=== PATIENT | male | born 1975 | race Caucasian/White ===

== ENCOUNTER 2016-09-07 10:46 | Inpatient (IN) | payer OTHER ==
[~2016-09-07] VITALS: Ht 180.3 cm; Wt 88.3 kg
[2016-09-07] VITALS (16 sets, daily range): BP systolic 111–139; BP diastolic 65–84; PULSE 75–104; RESP 16–55; Ht 180.3 cm; Wt 88.3 kg
[2016-09-07] MEDS ORDERED: PHEN100C PO (12:13)
[2016-09-07] MEDS ORDERED: CITA-104 PO (12:16)
[2016-09-07] MEDS ORDERED: HYDR-842 PO (12:16)
[2016-09-07] MEDS ORDERED: MELO-110 PO (12:17)
[2016-09-07] MEDS ORDERED: GABA-526 PO (12:17)
[2016-09-07] MEDS ORDERED: BUPR1FIL3 SL (12:19)
[2016-09-07] MEDS ORDERED: THROMBIN 5000 UNIT VIAL ONE (12:31)
[2016-09-07] MEDS ORDERED: POLYMYXIN/BACITRACIN 1L IRRIG ONE (12:31)
[2016-09-07] MEDS ORDERED: GELATIN SIZE 100 SPONGE ONE (12:31)
[2016-09-07] MEDS ORDERED: LIDOCAINE 1% (MPF) 30 ML INJ ONE (12:31)
[2016-09-07] MEDS ORDERED: BUPIVACAINE 0.5%/EPI (SDV) 30 ML INJ ONE (12:40)
[2016-09-07] MEDS ORDERED: ROCURONIUM 50 MG INJ ONE ×3 (12:46→14:30)
[2016-09-07] MEDS ORDERED: LIDOCAINE 2% (SDV) 5 ML INJ ONE (12:46)
[2016-09-07] MEDS ORDERED: PROPOFOL 20 ML ONE (12:46)
[2016-09-07] MEDS ORDERED: MIDAZOLAM 1 MG/ML 2 ML INJ ONE (13:02)
[2016-09-07] MEDS ORDERED: LABETALOL HCL 20MG INJ IV PRN (13:30)
[2016-09-07] MEDS ORDERED: EPHEDrine SULFATE 50 MG/5 ML SYG IV PRN (13:30)
[2016-09-07] MEDS ORDERED: MEPERIDINE 25 MG INJ IV PRN (13:30)
[2016-09-07] MEDS ORDERED: hydrALAzine 20 MG INJ IV PRN (13:30)
[2016-09-07] MEDS ORDERED: METOCLOPRAMIDE 10 MG INJ IV PRN (13:30)
[2016-09-07] MEDS ORDERED: FENTAnyl 50 MCG/ML VIAL IV PRN ×3 (13:30)
[2016-09-07] MEDS ORDERED: ONDANSETRON 4 MG INJ IV PRN ×2 (13:30)
[2016-09-07] MEDS ORDERED: HYDROmorphONE (0.2 MG/ML) 10ML SYG IV PRN ×2 (13:30)
[2016-09-07] MEDS ORDERED: DIPHENHYDRAMINE 50 MG INJ IV PRN (13:30)
[2016-09-07] MEDS ORDERED: HYDROmorphONE 2 MG/ML SYG ONE (13:31)
[2016-09-07] MEDS ORDERED: LABETALOL HCL 20MG INJ ONE (13:47)
[2016-09-07] MEDS: CEFAZOLIN 1 GM/50 ML (PMX) 50 ML IVPB SCH ×2 (14:00→21:04)
[2016-09-07] MEDS ORDERED: hydrALAzine 20 MG INJ ONE (14:03)
[2016-09-07] MEDS ORDERED: BUPIVACAINE 0.5% (MPF) 30 ML INJ INJ ONE (14:12)
[2016-09-07] MEDS ORDERED: DEXAMETHASONE 4 MG/ML 1 ML INJ ONE (14:28)
[2016-09-07] MEDS ORDERED: NEOSTIGMINE 3 MG/3 ML SYRINGE ONE (15:27)
[2016-09-07] MEDS ORDERED: GLYCOPYRROLATE 0.4 MG INJ ONE (15:27)
[2016-09-07] MEDS: HYDROmorphONE (0.2 MG/ML) 10ML SYG IV PRN ×2 (15:44→16:09)
[2016-09-07] MEDS ORDERED: LORAZEPAM 2 MG INJ IV ONE (16:30)
--- NOTE | 2016-09-07 18:58 | HP ---
DATE OF ADMISSION: 09/07/2016 CHIEF COMPLAINT AND HISTORY OF PRESENT ILLNESS: The patient is a 41-year-old gentleman with a hist ory of right lumbosacral radiculopathy. The patient was seen by Dr. Moreno as an outpatient and wa s diagnosed with right L4-L5 and L5-S1 disk herniation. The patient was brought into hospital and u nderwent microdiskectomy. The patient postoperatively is anxious and is complaining of pain. The p atient denied any chest pain or shortness of breath. Patient did not have any vomiting, did not hav e any leg edema. No focal weakness. The patient remains awake, alert. No focal weakness. No recen t fever or chills. REVIEW OF SYSTEMS: Rest of the systems are unremarkable. PAST MEDICAL HISTORY: As stated above. In addition, the patient is status post right inguinal karissa ia repair. The patient also has a history of stable seizure disorder. FAMILY HISTORY: Noncontributory. SOCIAL HISTORY: The patient has 20 pack years of smoking, history of IV heroin use for 11 years, al so history of cocaine use and methamphetamine use, but patient stated that he has been clean. PHYSICAL EXAMINATION: GENERAL: The patient to be conscious, awake, alert. VITAL SIGNS: Temperature 97.7, pulse 84, respirations 22, blood pressure 129/84, O2 saturation 98%. HEENT: Conjunctivae and lids normal. Oropharynx clear. NECK: Supple. No mass, no thyromegaly. CHEST: Fairly clear. CARDIOVASCULAR: S1, S2 normal. No murmur. ABDOMEN: Soft, nondistended, nontender. EXTREMITIES: No leg edema. Pedal pulses palpable. SKIN: Without acute rash. NEUROLOGIC: The patient is awake, alert, fairly oriented. LABORATORY DATA: Prior to surgery, hemoglobin 15, platelets 198. WBC is 9.2. Coagulation profile normal. Sodium 138, potassium 4.3, BUN 21, creatinine 0.7. Liver enzymes normal. EKG with sinus r hythm. Chest x-ray unremarkable. IMPRESSION: 1. Right lumbosacral radiculopathy due to disk herniation status post microdiskectomy. 2. History of seizure disorder. 3. History of polysubstance abuse, currently on Suboxone. PLAN: Patient admitted on medical floor. Patient will be continued on Celexa, gabapentin and Dil antin. The patient is getting perioperative IV antibiotic as per protocol. Patient is currently on [place] and IV morphine for pain control. The patient looks extremely anxious. He will be given 1 d ose of Ativan. He will use sequential compression devices for deep venous thrombosis prophylaxis an d will continue to follow him from a medical standpoint. Dictated By: MARION MAIN/MELANIE Conf#: [id number] DID#: [id number]
[2016-09-07] MEDS: morphine 2 MG INJ IV PRN ×2 (19:31→22:56)
[2016-09-07] MEDS: CYCLOBENZAPRINE 10 MG TAB PO PRN (20:21)
[2016-09-07] MEDS: GABAPENTIN 300 MG CAP PO SCH (20:21)
[2016-09-07] MEDS: PHENYTOIN 100 MG CAP PO SCH (20:21)
[2016-09-07] MEDS: HYDROCODONE/APAP (10/325) TAB PO PRN (21:06)
[2016-09-07] MEDS: LORAZEPAM 2 MG INJ IV PRN (21:07)
[2016-09-08] MEDS: LORAZEPAM 2 MG INJ IV PRN ×5 (00:11→21:33)
[2016-09-08 01:09] VITALS: BP 128/64; PULSE 95; RESP 18
[2016-09-08] MEDS: HYDROCODONE/APAP (10/325) TAB PO PRN ×5 (01:23→21:53)
[2016-09-08] MEDS: morphine 2 MG INJ IV PRN ×4 (01:57→19:33)
[2016-09-08] MEDS: CEFAZOLIN 1 GM/50 ML (PMX) 50 ML IVPB SCH ×2 (04:52→13:06)
[2016-09-08 08:57] VITALS: BP 122/61; RESP 20
[2016-09-08] MEDS: CITALOPRAM 20 MG TAB PO SCH (09:14)
[2016-09-08] MEDS: CYCLOBENZAPRINE 10 MG TAB PO PRN ×2 (09:14→17:23)
[2016-09-08] MEDS: PHENYTOIN 100 MG CAP PO SCH ×2 (09:15→20:53)
[2016-09-08] MEDS: GABAPENTIN 300 MG CAP PO SCH ×3 (09:15→20:53)
--- NOTE | 2016-09-08 12:53 | CONS ---
Date/Time of Note Date/Time of Note DATE: 09/08/16 TIME: 12:50 Assessment/Plan Assessment/Plan Additional Assessment/Plan seen/examined with Dr Moreno awake/looks sedated and drowsy/follows/moves all/sensation intact will adjust narcotics and ativan. sp right l4-5, left l5-s1 microdiskectomy cont with pt/ot Consultation Date/Type/Reason Admit Date/Time Sep 07, 2016 at 10:46 Initial Consult Date Exam/Review of Systems Vital Signs Vitals Vital Signs Date Time Temp Pulse Resp B/P Pulse Ox O2 Delivery O2 Flow Rate FiO2 09/08/16 08:57 97.9 87 20 122/61 95 09/08/16 01:09 Nasal Cannula 2.0 Intake and Output 09/07/16 09/07/16 09/08/16 15:00 23:00 07:00 Intake Total 1650 ml 1450 ml Output Total 150 ml 100 ml 1500 ml Balance -150 ml 1550 ml -50 ml Medications Medications Current Medications Cefazolin Sodium (Ancef 1 Gm/50 ml (Pmx)) 50 ml @ 100 mls/hr Q8 IVPB Last administered on 09/08/16 04:52; Admin Dose 100 MLS/HR; Start 09/07/16 at 14:00; Stop 09/08/16 at 14:00 Acetaminophen/ Hydrocodone Bitart ([place] (10/325)) 1 tab Q4H PRN PO PAIN Last administered on 09/08/16 09:14; Admin Dose 1 TAB; Start 09/07/16 at 13:30 Ondansetron HCl (Zofran Inj) 4 mg Q6H PRN IV NAUSEA AND/OR VOMITING; Start 09/07 at 13:30 Citalopram Hydrobromide (Celexa) 40 mg DAILY PO Last administered on 09/08/16 09:14; Admin Dose 40 MG; Start 09/08/16 at 09:00 Gabapentin (Neurontin) 600 mg TID PO Last administered on 09/08/16 09:15; Admin Dose 600 MG; Start 09/07/16 at 21:00 Phenytoin (Dilantin) 200 mg BID PO Last administered on 09/08/16 09:15; Admin Dose 200 MG; Start 09/07/16 at 21:00 Cyclobenzaprine HCl (Flexeril) 10 mg TID PRN PO MUSCLE SPASMS Last administered on 09/08/16 09:14; Admin Dose 10 MG; Start 09/07/16 at 19:00 Lorazepam (Ativan) 1 mg Q2HWA PRN IV ANXIETY Last administered on 09/08/16 09: 14; Admin Dose 1 MG; Start 09/07/16 at 21:00 Morphine Sulfate (morphine) 1 mg Q4H PRN IV severe pain; Start 09/08/16 at 14:30 ALBERTINA MORALEZ PA-C Sep 08, 2016 12:53
--- NOTE | 2016-09-08 13:30 | OPPN ---
Date/Time of Note Date/Time of Note DATE: 09/08/16 TIME: 13:29 Anesthesia Follow up Anesthesia Follow up Last documented vital signs Vital Signs Date Time Temp Pulse Resp B/P Pulse Ox O2 Delivery O2 Flow Rate FiO2 09/08/16 08:57 97.9 87 20 122/61 95 09/08/16 08:00 Nasal Cannula 2.0 Respiratory function: WNL Cardiovascular function: WNL TAYLOR PINO Sep 08, 2016 13:30
[2016-09-08 13:44] LABS: ADD SCAN DIFF NO
[2016-09-08 13:46] LABS: ABNORMAL IP MESSAGE 1; BASOPHILS % 0.1 % (0.0-2.0); HEMATOCRIT 40.6 % (42.0-52.0); HEMOGLOBIN 14.1 g/dl (14.0-18.0); LYMPHOCYTES % 13.2 % (15.0-51.0); MEAN CORPUSCULAR HEMOGLOBIN 29.4 pg (29.0-33.0); MEAN CORPUSCULAR HGB CONC 34.7 g/dl (32.0-37.0); MEAN CORPUSCULAR VOLUME 84.6 fl (82.0-101.0); MEAN PLATELET VOLUME 9.7 fl (7.4-10.4); MONOCYTE # 1.7 10^3/ul (0.3-0.9); MONOCYTES % 11.3 % (0.0-11.0); NEUTROPHIL # 11.4 10^3/ul (1.6-7.5); NEUTROPHILS % 74.9 % (39.0-77.0); PLATELET COUNT 180 10^3/UL (140-415); RED CELL DISTRIBUTION WIDTH 11.3 % (11.5-14.5); WHITE BLOOD COUNT 15.3 10^3/ul (4.8-10.8)
[2016-09-08 14:05] LABS: CALCIUM 8.9 mg/dl (8.4-10.2); CREATININE 0.58 mg/dl (0.61-1.24)
--- NOTE | 2016-09-08 14:12 | PN ---
Date/Time of Note Date/Time of Note DATE: 09/08/16 TIME: 14:12 Assessment/Plan VTE Prophylaxis VTE Prophylaxis Intervention: SCD's Lines/Catheters IV Catheter Type (from Nrsg): Peripheral IV Urinary Cath still in place: Yes Reason Cath still needed: urinary retention Assessment/Plan Chief Complaint/Hosp Course Patient pain pain is well controlled, remains hemodynamically stable. Low back surgical dressing is dry clean and intact. Problems: Assessment/Plan 1. Right lumbosacral radiculopathy due to disk herniation status post microdiskectomy. Continue to follow-up surgical recommendation. 2. History of seizure disorder. Continue Dilantin. 3. History of polysubstance abuse, currently on Suboxone. Further recommendations based on clinical course. Plan of care discussed with Dr. Gandhi. Exam/Review of Systems Vital Signs Vitals Vital Signs Date Time Temp Pulse Resp B/P Pulse Ox O2 Delivery O2 Flow Rate FiO2 09/08/16 08:57 97.9 87 20 122/61 95 09/08/16 08:00 Nasal Cannula 2.0 Intake and Output 09/07/16 09/07/16 09/08/16 15:00 23:00 07:00 Intake Total 1650 ml 1450 ml Output Total 150 ml 100 ml 1500 ml Balance -150 ml 1550 ml -50 ml Exam Constitutional: alert, oriented Head: atraumatic, normocephalic Neck: supple Cardiovascular: nl pulses Gastrointestinal: non-tender, soft Musculoskeletal: nl extremities to inspection, other (Lower posterior back surgical dressing is dry clean and intact) Extremities: normal pulses Results Result Diagram: 09/08/16 1324 09/08/16 1324 Results 24 hrs Laboratory Tests Test 09/08/16 13:24 White Blood Count 15.3 H Red Blood Count 4.80 Hemoglobin 14.1 Hematocrit 40.6 L Mean Corpuscular Volume 84.6 Mean Corpuscular Hemoglobin 29.4 Mean Corpuscular Hemoglobin Concent 34.7 Red Cell Distribution Width 11.3 L Platelet Count 180 Mean Platelet Volume 9.7 Neutrophils % 74.9 Lymphocytes % 13.2 L Monocytes % 11.3 H Eosinophils % 0.0 Basophils % 0.1 Nucleated Red Blood Cells % 0.0 Neutrophils # 11.4 H Lymphocytes # 2.0 Monocytes # 1.7 H Eosinophils # 0.0 Basophils # 0.0 Nucleated Red Blood Cells # 0.0 Sodium Level 136 Potassium Level 4.0 Chloride Level 104 Carbon Dioxide Level 27 Anion Gap 9 Blood Urea Nitrogen 16 Creatinine 0.58 L Glucose Level 119 Calcium Level 8.9 Medications Medications Current Medications Acetaminophen/ Hydrocodone Bitart ([place] (10/325)) 1 tab Q4H PRN PO PAIN Last administered on 09/08/16 13:18; Admin Dose 1 TAB; Start 09/07/16 at 13:30 Ondansetron HCl (Zofran Inj) 4 mg Q6H PRN IV NAUSEA AND/OR VOMITING; Start 09/07 at 13:30 Citalopram Hydrobromide (Celexa) 40 mg DAILY PO Last administered on 09/08/16 09:14; Admin Dose 40 MG; Start 09/08/16 at 09:00 Gabapentin (Neurontin) 600 mg TID PO Last administered on 09/08/16 13:06; Admin Dose 600 MG; Start 09/07/16 at 21:00 Phenytoin (Dilantin) 200 mg BID PO Last administered on 09/08/16 09:15; Admin Dose 200 MG; Start 09/07/16 at 21:00 Cyclobenzaprine HCl (Flexeril) 10 mg TID PRN PO MUSCLE SPASMS Last administered on 09/08/16 09:14; Admin Dose 10 MG; Start 09/07/16 at 19:00 Morphine Sulfate (morphine) 1 mg Q4H PRN IV severe pain; Start 09/08/16 at 14:30 Lorazepam (Ativan) 1 mg Q6H PRN IV ANXIETY; Start 09/08/16 at 17:00 ADOLFO POWER Sep 08, 2016 14:12
[2016-09-08] MEDS ORDERED: morphine 2 MG INJ IV PRN (14:30)
--- NOTE | 2016-09-08 18:57 | RADRPT ---
PROCEDURE: Intraoperative fluoroscopy. CLINICAL INDICATION: Intraoperative fluoroscopy during L4-S1 microdiskectomy. TECHNIQUE: 4 spot intraoperative fluoroscopic images were provided. The images were reviewed on a high-resolution PACS workstation. COMPARISON: None available FINDINGS: Multiple spot intraoperative fluoroscopic views were provided during lumbar microdiskectomy. The im ages demonstrate instrumentation at the level of L5-S1. The total fluoroscopy time was 0.08 seconds . IMPRESSION: 1. Multiple spot intraoperative fluoroscopic views during lumbar microdiskectomy were provided. 2. Please see operative report of the same day for further information. RPTAT: HGAS .Thanh Agarwal MD, MD Date Time Electronically viewed and signed by .Thanh Agarwal MD, on 09/08/2016 18:56 .S/
[2016-09-09] MEDS: morphine 2 MG INJ IV PRN ×2 (00:16→05:22)
[2016-09-09] MEDS: CYCLOBENZAPRINE 10 MG TAB PO PRN ×3 (01:44→20:22)
[2016-09-09] MEDS: HYDROCODONE/APAP (10/325) TAB PO PRN ×5 (01:44→21:28)
[2016-09-09] MEDS: ZOLPIDEM 5 MG TAB PO PRN ×2 (01:44→20:22)
[2016-09-09 02:02] VITALS: BP 135/77; RESP 20
[2016-09-09] MEDS: LORAZEPAM 2 MG INJ IV PRN ×2 (04:18→17:54)
[2016-09-09 05:12] LABS: ADD SCAN DIFF NO
[2016-09-09 05:18] LABS: ABNORMAL IP MESSAGE 1; BASOPHILS % 0.1 % (0.0-2.0); HEMATOCRIT 37.5 % (42.0-52.0); HEMOGLOBIN 13.5 g/dl (14.0-18.0); LYMPHOCYTES # 2.6 10^3/ul (0.8-2.9); MEAN CORPUSCULAR HEMOGLOBIN 29.8 pg (29.0-33.0); MEAN CORPUSCULAR VOLUME 82.8 fl (82.0-101.0); MONOCYTE # 1.6 10^3/ul (0.3-0.9); MONOCYTES % 11.4 % (0.0-11.0); NEUTROPHIL # 9.9 10^3/ul (1.6-7.5); NEUTROPHILS % 69.9 % (39.0-77.0); PLATELET COUNT 181 10^3/UL (140-415); RED BLOOD COUNT 4.53 10^6/ul (4.70-6.10); RED CELL DISTRIBUTION WIDTH 10.9 % (11.5-14.5); WHITE BLOOD COUNT 14.2 10^3/ul (4.8-10.8)
[2016-09-09 05:33] LABS: CALCIUM 9.1 mg/dl (8.4-10.2); CREATININE 0.55 mg/dl (0.61-1.24); POTASSIUM 3.9 mmol/L (3.5-5.1)
--- NOTE | 2016-09-09 06:53 | PREOPHP ---
DATE OF ADMISSION: 09/07/2016 HISTORY OF PRESENT ILLNESS: The patient is a 41-year-old male originally seen in the office for maricarmen dunn of low back pain with pain radiating to both of his lower extremities, right greater than le ft. The patient was diagnosed with lumbar 4, lumbar 5 right-sided disk herniation and lumbar 5, sac ral 1 left-sided disk herniation. Conservative management was offered in the form of physical thera py and pain management. The patient failed. The patient also had epidural injections in the lumbar spine x4, which it did not improve. He continued to complain of low back pain, continued to compla in of pain radiating to the lower extremities, both sides, but sometimes he would complain of right side having more pain and sometimes the left side having more pain. Unfortunately, the patient has exhausted all means of conservative management and has failed outpatient therapy. Surgical option w as discussed with the patient in the form of right lumbar 4, 5 and left lumbar 5, sacral 1 microdisk ectomy. The patient has agreed to proceed with intervention. PAST MEDICAL HISTORY: Per chart. PAST SURGICAL HISTORY: Per chart. SOCIAL HISTORY: Per chart. ALLERGIES: PER CHART. MEDICATIONS TAKEN AT HOME: Per chart. FAMILY HISTORY: Unremarkable. REVIEW OF SYSTEMS: Additional 10-point review of systems conducted, pertinent positives stated in t he HPI, otherwise negative. PHYSICAL EXAMINATION: GENERAL: The patient is awake, alert and oriented in bed, follows commands appropriately. HEENT: Head is atraumatic, normocephalic. Sclerae anicteric. EOMS intact. Pupils are equal and reactive. Oropharynx shows , no bleeding. NECK: Supple. No thyromegaly. No JVD. No accessory muscle use. PULMONARY: No dyspnea, no tachypnea. CARDIOVASCULAR: No JVD, no pedal edema. ABDOMEN: Soft without guarding. Bowel sounds present. PERIPHERAL VASCULAR: No edema, no swelling. NEUROLOGIC: . Awake, alert and oriented, follows commands appropriately. Upper extremity exa mination unremarkable. Lower extremities: He is able to move both lower extremities knees __ ___ equally, but he is having a considerable amount of lumbar spine pain when he is moving his right lower extremity. positive straight leg raise noted. IMAGING FINDINGS: MRI dated 07/27/2016 shows a right lumbar 4, 5 disk herniation and left lumbar 5, sacral 1 disk herniation. IMPRESSION: The patient is approximately 41 years of age, has history of low back pain with radicul opathy and has been diagnosed with right L4-L5 and left L5-S1 disk herniation. The patient has a co nsiderable amount of pain in the lower back, has failed outpatient management. RECOMMENDATION: Is for patient to be admitted to the hospital for right L4-L5 and left L5- S1 amy otomy with microdiskectomy. The procedure was described to the patient in great detail. Complicati ons explained including permanent nerve damage, infection, bleeding. Complications with anesthesia including stroke, heart attack. The patient has agreed and wants to proceed. Preop was performed a nd has been cleared by primary care physician. The patient will be admitted to the hospital after f or further care and management. Dictated By: TATYANA SALEEM/MELANIE Conf#: [id number] DID#: [id number]
--- NOTE | 2016-09-09 07:22 | CONS ---
Date/Time of Note Date/Time of Note DATE: 09/09/16 TIME: 07:17 Assessment/Plan Assessment/Plan Additional Assessment/Plan seen/examined awake/alert/follows/moves all wound looks good pt states pain better compared to yesterday co severe back pain, rad to left lower extremity placed a pillow to get relief from low back pain encourage to ambulate may go home within 24 hrs Consultation Date/Type/Reason Admit Date/Time Sep 07, 2016 at 10:46 Exam/Review of Systems Vital Signs Vitals Vital Signs Date Time Temp Pulse Resp B/P Pulse Ox O2 Delivery O2 Flow Rate FiO2 09/09/16 02:02 98.5 92 20 135/77 93 09/08/16 08:00 Nasal Cannula 2.0 Intake and Output 09/08/16 09/08/16 09/09/16 15:00 23:00 07:00 Intake Total 50 ml 1220 ml 1200 ml Output Total 2200 ml 2600 ml Balance 50 ml -980 ml -1400 ml Results Result Diagram: 09/09/16 0417 09/09/16 0417 Results 24 hrs Laboratory Tests Test 09/08/16 13:24 09/09/16 04:17 White Blood Count 15.3 H 14.2 H Red Blood Count 4.80 4.53 L Hemoglobin 14.1 13.5 L Hematocrit 40.6 L 37.5 L Mean Corpuscular Volume 84.6 82.8 Mean Corpuscular Hemoglobin 29.4 29.8 Mean Corpuscular Hemoglobin Concent 34.7 36.0 Red Cell Distribution Width 11.3 L 10.9 L Platelet Count 180 181 Mean Platelet Volume 9.7 10.0 Neutrophils % 74.9 69.9 Lymphocytes % 13.2 L 18.0 Monocytes % 11.3 H 11.4 H Eosinophils % 0.0 0.0 Basophils % 0.1 0.1 Nucleated Red Blood Cells % 0.0 0.0 Neutrophils # 11.4 H 9.9 H Lymphocytes # 2.0 2.6 Monocytes # 1.7 H 1.6 H Eosinophils # 0.0 0.0 Basophils # 0.0 0.0 Nucleated Red Blood Cells # 0.0 0.0 Sodium Level 136 138 Potassium Level 4.0 3.9 Chloride Level 104 106 Carbon Dioxide Level 27 26 Anion Gap 9 10 Blood Urea Nitrogen 16 10 Creatinine 0.58 L 0.55 L Glucose Level 119 110 Calcium Level 8.9 9.1 Medications Medications Current Medications Acetaminophen/ Hydrocodone Bitart ([place] (10/325)) 1 tab Q4H PRN PO PAIN Last administered on 09/09/16 06:25; Admin Dose 1 TAB; Start 09/07/16 at 13:30 Ondansetron HCl (Zofran Inj) 4 mg Q6H PRN IV NAUSEA AND/OR VOMITING; Start 09/07 at 13:30 Citalopram Hydrobromide (Celexa) 40 mg DAILY PO Last administered on 09/08/16 09:14; Admin Dose 40 MG; Start 09/08/16 at 09:00 Gabapentin (Neurontin) 600 mg TID PO Last administered on 09/08/16 20:53; Admin Dose 600 MG; Start 09/07/16 at 21:00 Phenytoin (Dilantin) 200 mg BID PO Last administered on 09/08/16 20:53; Admin Dose 200 MG; Start 09/07/16 at 21:00 Cyclobenzaprine HCl (Flexeril) 10 mg TID PRN PO MUSCLE SPASMS Last administered on 09/09/16 01:44; Admin Dose 10 MG; Start 09/07/16 at 19:00 Lorazepam (Ativan) 1 mg Q6H PRN IV ANXIETY Last administered on 09/09/16 04:18 ; Admin Dose 1 MG; Start 09/08/16 at 17:00 Morphine Sulfate (morphine) 2 mg Q3 PRN IV severe pain Last administered on 09/09 05:22; Admin Dose 2 MG; Start 09/08/16 at 18:00 Zolpidem Tartrate (Ambien) 10 mg HS PRN PO INSOMNIA Last administered on 01:44; Admin Dose 10 MG; Start 09/09/16 at 01:30 ALBERTINA MORALEZ PA-C Sep 09, 2016 07:22
[2016-09-09 08:42] VITALS: BP 129/81; RESP 18
[2016-09-09] MEDS: HYDROmorphONE 1 MG/ML SYG IV PRN ×5 (08:50→22:02)
[2016-09-09] MEDS: CITALOPRAM 20 MG TAB PO SCH (08:50)
[2016-09-09] MEDS: PHENYTOIN 100 MG CAP PO SCH ×2 (08:50→20:22)
[2016-09-09] MEDS: GABAPENTIN 300 MG CAP PO SCH ×3 (08:50→20:22)
[2016-09-09] MEDS: DIAZEPAM 5 MG TAB PO PRN ×2 (15:17→21:28)
--- NOTE | 2016-09-09 17:38 | PN ---
Date/Time of Note Date/Time of Note DATE: 09/09/16 TIME: 17:37 Assessment/Plan VTE Prophylaxis VTE Prophylaxis Intervention: other Lines/Catheters IV Catheter Type (from Nrs): Peripheral IV Urinary Cath still in place: Yes Assessment/Plan Assessment/Plan 1. Right lumbosacral radiculopathy due to disk herniation status post microdiskectomy. Continue to follow-up neuro surgical recommendation. 2. History of seizure disorder. Continue Dilantin. 3. History of polysubstance abuse, currently on Suboxone. Further recommendations based on clinical course. Plan of care discussed with Dr. Gandhi. Subjective 24 Hr Interval Summary Free Text/Dictation c/o lower back pain, remains hemodynamically stable. Low back surgical dressing is dry clean and intact. dw staff. Cardiovascular: no complaints Gastrointestinal: no complaints Genitourinary: no complaints Musculoskeletal: back pain Exam/Review of Systems Vital Signs Vitals Vital Signs Date Time Temp Pulse Resp B/P Pulse Ox O2 Delivery O2 Flow Rate FiO2 09/09/16 08:42 98.2 83 18 129/81 96 09/08/16 08:00 Nasal Cannula 2.0 Intake and Output 09/08/16 09/08/16 09/09/16 15:00 23:00 07:00 Intake Total 50 ml 1220 ml 1200 ml Output Total 2200 ml 2600 ml Balance 50 ml -980 ml -1400 ml Exam Constitutional: alert, oriented, well developed Respiratory: clear to auscultation, normal air movement Cardiovascular: nl pulses, regular rate and rhythm Gastrointestinal: non-tender, soft Musculoskeletal: nl extremities to inspection Extremities: normal pulses Neurological: nl mental status, nl speech Skin: other Lymph: nontender Results Result Diagram: 09/09/16 0417 09/09/16 0417 Results 24 hrs Laboratory Tests Test 09/09/16 04:17 White Blood Count 14.2 H Red Blood Count 4.53 L Hemoglobin 13.5 L Hematocrit 37.5 L Mean Corpuscular Volume 82.8 Mean Corpuscular Hemoglobin 29.8 Mean Corpuscular Hemoglobin Concent 36.0 Red Cell Distribution Width 10.9 L Platelet Count 181 Mean Platelet Volume 10.0 Neutrophils % 69.9 Lymphocytes % 18.0 Monocytes % 11.4 H Eosinophils % 0.0 Basophils % 0.1 Nucleated Red Blood Cells % 0.0 Neutrophils # 9.9 H Lymphocytes # 2.6 Monocytes # 1.6 H Eosinophils # 0.0 Basophils # 0.0 Nucleated Red Blood Cells # 0.0 Sodium Level 138 Potassium Level 3.9 Chloride Level 106 Carbon Dioxide Level 26 Anion Gap 10 Blood Urea Nitrogen 10 Creatinine 0.55 L Glucose Level 110 Calcium Level 9.1 Medications Medications Current Medications Acetaminophen/ Hydrocodone Bitart ([place] (10/325)) 1 tab Q4H PRN PO PAIN Last administered on 09/09/16 17:30; Admin Dose 1 TAB; Start 09/07/16 at 13:30 Ondansetron HCl (Zofran Inj) 4 mg Q6H PRN IV NAUSEA AND/OR VOMITING; Start 09/07 at 13:30 Citalopram Hydrobromide (Celexa) 40 mg DAILY PO Last administered on 09/09/16 08:50; Admin Dose 40 MG; Start 09/08/16 at 09:00 Gabapentin (Neurontin) 600 mg TID PO Last administered on 09/09/16 12:27; Admin Dose 600 MG; Start 09/07/16 at 21:00 Phenytoin (Dilantin) 200 mg BID PO Last administered on 09/09/16 08:50; Admin Dose 200 MG; Start 09/07/16 at 21:00 Cyclobenzaprine HCl (Flexeril) 10 mg TID PRN PO MUSCLE SPASMS Last administered on 09/09/16 11:23; Admin Dose 10 MG; Start 09/07/16 at 19:00 Lorazepam (Ativan) 1 mg Q6H PRN IV ANXIETY Last administered on 09/09/16 04:18 ; Admin Dose 1 MG; Start 09/08/16 at 17:00 Zolpidem Tartrate (Ambien) 10 mg HS PRN PO INSOMNIA Last administered on 01:44; Admin Dose 10 MG; Start 09/09/16 at 01:30 Hydromorphone HCl (Dilaudid) 1 mg Q3H PRN IV SEVERE PAIN LEVEL 7-10 Last administered on 09/09/16 15:46; Admin Dose 1 MG; Start 09/09/16 at 08:30 Diazepam (Valium) 5 mg Q6H PRN PO ANXIETY Last administered on 09/09/16 15:17; Admin Dose 5 MG; Start 09/09/16 at 15:30 CHELE BARNETT Sep 09, 2016 17:38
[2016-09-09 22:59] VITALS: BP 119/69; RESP 20
[2016-09-10] MEDS: HYDROmorphONE 1 MG/ML SYG IV PRN ×7 (02:16→21:57)
[2016-09-10] MEDS: DIAZEPAM 5 MG TAB PO PRN ×4 (03:25→23:02)
[2016-09-10] MEDS: HYDROCODONE/APAP (10/325) TAB PO PRN ×3 (03:25→20:51)
[2016-09-10] MEDS: CYCLOBENZAPRINE 10 MG TAB PO PRN (05:31)
[2016-09-10 05:39] LABS: ADD SCAN DIFF NO
[2016-09-10 05:46] LABS: BASOPHILS % 0.2 % (0.0-2.0); EOSINOPHILS # 0.1 10^3/ul (0.0-0.5); EOSINOPHILS % 0.5 % (0.0-7.0); HEMATOCRIT 37.7 % (42.0-52.0); HEMOGLOBIN 13.4 g/dl (14.0-18.0); LYMPHOCYTES # 2.5 10^3/ul (0.8-2.9); LYMPHOCYTES % 24.9 % (15.0-51.0); MEAN CORPUSCULAR HEMOGLOBIN 29.5 pg (29.0-33.0); MEAN CORPUSCULAR HGB CONC 35.5 g/dl (32.0-37.0); MEAN PLATELET VOLUME 10.2 fl (7.4-10.4); MONOCYTE # 1.2 10^3/ul (0.3-0.9); NEUTROPHIL # 6.3 10^3/ul (1.6-7.5); PLATELET COUNT 174 10^3/UL (140-415); RED BLOOD COUNT 4.54 10^6/ul (4.70-6.10); RED CELL DISTRIBUTION WIDTH 11.2 % (11.5-14.5); WHITE BLOOD COUNT 10.1 10^3/ul (4.8-10.8)
[2016-09-10 06:13] LABS: CALCIUM 9.3 mg/dl (8.4-10.2); CREATININE 0.56 mg/dl (0.61-1.24); POTASSIUM 3.8 mmol/L (3.5-5.1)
[2016-09-10] MEDS: CITALOPRAM 20 MG TAB PO SCH (08:34)
[2016-09-10] MEDS: GABAPENTIN 300 MG CAP PO SCH ×3 (08:34→20:50)
[2016-09-10] MEDS: PHENYTOIN 100 MG CAP PO SCH ×2 (08:34→20:50)
[2016-09-10 08:48] VITALS: BP 109/70
--- NOTE | 2016-09-10 16:01 | PN ---
Date/Time of Note Date/Time of Note DATE: 09/10/16 TIME: 15:58 Assessment/Plan VTE Prophylaxis VTE Prophylaxis Intervention: SCD's Lines/Catheters IV Catheter Type (from Nrsg): Peripheral IV Urinary Cath still in place: Yes Reason Cath still needed: urinary retention Assessment/Plan Chief Complaint/Hosp Course Patient still complains of pain and anxiety requiring IV Dilaudid and Ativan. Patient is encouraged to get out of bed and ambulate, use incentive spirometer q. one hour while awake. Assessment/Plan 1. Right lumbosacral radiculopathy due to disk herniation status post microdiskectomy. Continue to follow-up surgical recommendation. 2. History of seizure disorder. Continue Dilantin. 3. History of polysubstance abuse, was on Suboxone prior to surgery. Further recommendations based on clinical course. Plan of care discussed with Dr. Gandhi. Problems: Exam/Review of Systems Vital Signs Vitals Vital Signs Date Time Temp Pulse Resp B/P Pulse Ox O2 Delivery O2 Flow Rate FiO2 09/10/16 08:48 98.2 84 109/70 96 09/09/16 22:59 20 09/08/16 08:00 Nasal Cannula 2.0 Intake and Output 09/09/16 09/09/16 09/10/16 15:00 23:00 07:00 Intake Total 1200 ml 750 ml Output Total 1700 ml 1400 ml Balance -500 ml -650 ml Exam Constitutional: alert, oriented Head: atraumatic, normocephalic Neck: supple Cardiovascular: nl pulses Gastrointestinal: non-tender, soft Musculoskeletal: nl extremities to inspection, other (Lower posterior back surgical dressing is dry clean and intact) Extremities: normal pulses Results Result Diagram: 09/10/16 0439 09/10/16 0439 Results 24 hrs Laboratory Tests Test 09/10/16 04:39 09/10/16 07:09 White Blood Count 10.1 # Red Blood Count 4.54 L Hemoglobin 13.4 L Hematocrit 37.7 L Mean Corpuscular Volume 83.0 Mean Corpuscular Hemoglobin 29.5 Mean Corpuscular Hemoglobin Concent 35.5 Red Cell Distribution Width 11.2 L Platelet Count 174 Mean Platelet Volume 10.2 Neutrophils % 62.0 Lymphocytes % 24.9 Monocytes % 12.0 H Eosinophils % 0.5 Basophils % 0.2 Nucleated Red Blood Cells % 0.0 Neutrophils # 6.3 Lymphocytes # 2.5 Monocytes # 1.2 H Eosinophils # 0.1 Basophils # 0.0 Nucleated Red Blood Cells # 0.0 Sodium Level 141 Potassium Level 3.8 Chloride Level 105 Carbon Dioxide Level 24 Anion Gap 16 Blood Urea Nitrogen 12 Creatinine 0.56 L Glucose Level 114 Calcium Level 9.3 Lab Scanned Report REFERENCE LAB Medications Medications Current Medications Acetaminophen/ Hydrocodone Bitart ([place] (10)) 1 tab Q4H PRN PO PAIN Last administered on 09/10/16 07:13; Admin Dose 1 TAB; Start 09/07/16 at 13:30 Ondansetron HCl (Zofran Inj) 4 mg Q6H PRN IV NAUSEA AND/OR VOMITING; Start 09/07 at 13:30 Citalopram Hydrobromide (Celexa) 40 mg DAILY PO Last administered on 09/10/16 08:34; Admin Dose 40 MG; Start 09/08/16 at 09:00 Gabapentin (Neurontin) 600 mg TID PO Last administered on 09/10/16 12:35; Admin Dose 600 MG; Start 09/07/16 at 21:00 Phenytoin (Dilantin) 200 mg BID PO Last administered on 09/10/16 08:34; Admin Dose 200 MG; Start 09/07/16 at 21:00 Cyclobenzaprine HCl (Flexeril) 10 mg TID PRN PO MUSCLE SPASMS Last administered on 09/10/16 05:31; Admin Dose 10 MG; Start 09/07/16 at 19:00 Lorazepam (Ativan) 1 mg Q6H PRN IV ANXIETY Last administered on 09/09/16 17:54 ; Admin Dose 1 MG; Start 09/08/16 at 17:00 Zolpidem Tartrate (Ambien) 10 mg HS PRN PO INSOMNIA Last administered on 20:22; Admin Dose 10 MG; Start 09/09/16 at 01:30 Hydromorphone HCl (Dilaudid) 1 mg Q3H PRN IV SEVERE PAIN LEVEL 7-10 Last administered on 09/10/16 15:27; Admin Dose 1 MG; Start 09/09/16 at 08:30 Diazepam (Valium) 5 mg Q6H PRN PO ANXIETY Last administered on 09/10/16 10:41; Admin Dose 5 MG; Start 09/09/16 at 15:30 ADOLFO POWER Sep 10, 2016 16:01
--- NOTE | 2016-09-10 16:15 | CONS ---
Date/Time of Note Date/Time of Note DATE: 09/10/16 TIME: 16:14 Assessment/Plan Assessment/Plan Additional Assessment/Plan seen/examined feels better today able to ambulate may go home Consultation Date/Type/Reason Admit Date/Time Sep 07, 2016 at 10:46 Exam/Review of Systems Vital Signs Vitals Vital Signs Date Time Temp Pulse Resp B/P Pulse Ox O2 Delivery O2 Flow Rate FiO2 09/10/16 08:48 98.2 84 109/70 96 09/09/16 22:59 20 09/08/16 08:00 Nasal Cannula 2.0 Intake and Output 09/09/16 09/09/16 09/10/16 15:00 23:00 07:00 Intake Total 1200 ml 750 ml Output Total 1700 ml 1400 ml Balance -500 ml -650 ml Results Result Diagram: 09/10/16 0439 09/10/16 0439 Results 24 hrs Laboratory Tests Test 09/10/16 04:39 09/10/16 07:09 White Blood Count 10.1 # Red Blood Count 4.54 L Hemoglobin 13.4 L Hematocrit 37.7 L Mean Corpuscular Volume 83.0 Mean Corpuscular Hemoglobin 29.5 Mean Corpuscular Hemoglobin Concent 35.5 Red Cell Distribution Width 11.2 L Platelet Count 174 Mean Platelet Volume 10.2 Neutrophils % 62.0 Lymphocytes % 24.9 Monocytes % 12.0 H Eosinophils % 0.5 Basophils % 0.2 Nucleated Red Blood Cells % 0.0 Neutrophils # 6.3 Lymphocytes # 2.5 Monocytes # 1.2 H Eosinophils # 0.1 Basophils # 0.0 Nucleated Red Blood Cells # 0.0 Sodium Level 141 Potassium Level 3.8 Chloride Level 105 Carbon Dioxide Level 24 Anion Gap 16 Blood Urea Nitrogen 12 Creatinine 0.56 L Glucose Level 114 Calcium Level 9.3 Lab Scanned Report REFERENCE LAB Medications Medications Current Medications Acetaminophen/ Hydrocodone Bitart (Strawberry (10/325)) 1 tab Q4H PRN PO PAIN Last administered on 09/10/16t 07:13; Admin Dose 1 TAB; Start 09/07/16 at 13:30 Ondansetron HCl (Zofran Inj) 4 mg Q6H PRN IV NAUSEA AND/OR VOMITING; Start 09/07 at 13:30 Citalopram Hydrobromide (Celexa) 40 mg DAILY PO Last administered on 09/10/16 08:34; Admin Dose 40 MG; Start 09/08/16 at 09:00 Gabapentin (Neurontin) 600 mg TID PO Last administered on 09/10/16 12:35; Admin Dose 600 MG; Start 09/07/16 at 21:00 Phenytoin (Dilantin) 200 mg BID PO Last administered on 09/10/16 08:34; Admin Dose 200 MG; Start 09/07/16 at 21:00 Cyclobenzaprine HCl (Flexeril) 10 mg TID PRN PO MUSCLE SPASMS Last administered on 09/10/16 05:31; Admin Dose 10 MG; Start 09/07/16 at 19:00 Lorazepam (Ativan) 1 mg Q6H PRN IV ANXIETY Last administered on 09/09/16 17:54 ; Admin Dose 1 MG; Start 09/08/16 at 17:00 Zolpidem Tartrate (Ambien) 10 mg HS PRN PO INSOMNIA Last administered on 20:22; Admin Dose 10 MG; Start 09/09/16 at 01:30 Hydromorphone HCl (Dilaudid) 1 mg Q3H PRN IV SEVERE PAIN LEVEL 7-10 Last administered on 09/10/16 15:27; Admin Dose 1 MG; Start 09/09/16 at 08:30 Diazepam (Valium) 5 mg Q6H PRN PO ANXIETY Last administered on 09/10/16 10:41; Admin Dose 5 MG; Start 09/09/16 at 15:30 ALBERTINA MORALEZ PA-C Sep 10, 2016 16:15
[2016-09-10 19:00] VITALS: BP 110/69; RESP 18
[2016-09-11] MEDS: HYDROmorphONE 1 MG/ML SYG IV PRN ×5 (00:53→13:08)
[2016-09-11] MEDS: LORAZEPAM 2 MG INJ IV PRN (04:06)
[2016-09-11 05:04] LABS: ADD SCAN DIFF NO
[2016-09-11 05:14] LABS: BASOPHILS % 0.3 % (0.0-2.0); EOSINOPHILS # 0.1 10^3/ul (0.0-0.5); EOSINOPHILS % 1.3 % (0.0-7.0); HEMATOCRIT 37.7 % (42.0-52.0); HEMOGLOBIN 13.4 g/dl (14.0-18.0); LYMPHOCYTES # 3.4 10^3/ul (0.8-2.9); LYMPHOCYTES % 37.7 % (15.0-51.0); MEAN CORPUSCULAR HEMOGLOBIN 29.9 pg (29.0-33.0); MEAN CORPUSCULAR HGB CONC 35.5 g/dl (32.0-37.0); MEAN CORPUSCULAR VOLUME 84.2 fl (82.0-101.0); MEAN PLATELET VOLUME 9.8 fl (7.4-10.4); MONOCYTE # 0.9 10^3/ul (0.3-0.9); MONOCYTES % 9.5 % (0.0-11.0); NEUTROPHIL # 4.5 10^3/ul (1.6-7.5); NEUTROPHILS % 50.8 % (39.0-77.0); PLATELET COUNT 208 10^3/UL (140-415); RED BLOOD COUNT 4.48 10^6/ul (4.70-6.10); RED CELL DISTRIBUTION WIDTH 11.1 % (11.5-14.5); WHITE BLOOD COUNT 8.9 10^3/ul (4.8-10.8)
[2016-09-11 05:31] LABS: CALCIUM 9.3 mg/dl (8.4-10.2); CREATININE 0.62 mg/dl (0.61-1.24); POTASSIUM 3.8 mmol/L (3.5-5.1)
[2016-09-11] MEDS: HYDROCODONE/APAP (10/325) TAB PO PRN ×2 (07:55→12:10)
[2016-09-11] MEDS: DIAZEPAM 5 MG TAB PO PRN ×2 (07:56→13:57)
[2016-09-11] MEDS: GABAPENTIN 300 MG CAP PO SCH ×2 (07:56→12:10)
[2016-09-11] MEDS: PHENYTOIN 100 MG CAP PO SCH (07:56)
[2016-09-11] MEDS: CITALOPRAM 20 MG TAB PO SCH (07:59)
[2016-09-11 08:26] VITALS: BP 118/66; RESP 18
--- NOTE | 2016-09-11 12:10 | DS ---
Date/Time of Note Date/Time of Note DATE: 09/11/16 TIME: 12:09 Discharge Summary Admission/Discharge Info Admit Date/Time Sep 07, 2016 at 10:46 Discharge Date/Time 09/11/16 Final Diagnosis 1. Right lumbosacral radiculopathy due to disk herniation status post microdiskectomy. Continue to follow-up surgical recommendation. 2. History of seizure disorder. Continue Dilantin. 3. History of polysubstance abuse, was on Suboxone prior to surgery. Consults neurosurgery Procedures Microdiskectomy Hx of Present Illness Patient comes in with back pain due to radiculopathy Hospital Course Patient still complains of pain and anxiety requiring IV Dilaudid and Ativan. Patient is encouraged to get out of bed and ambulate, use incentive spirometer q. one hour while awake. Patient's pain is improved and he is stable for dischargeper surgery. Assessment/Plan 1. Right lumbosacral radiculopathy due to disk herniation status post microdiskectomy. Continue to follow-up surgical recommendation. 2. History of seizure disorder. Continue Dilantin. 3. History of polysubstance abuse, was on Suboxone prior to surgery. Further recommendations based on clinical course. Plan of care discussed with Dr. Gandhi. Home Meds Reported Medications Buprenorphine Hcl-Naloxone Hcl (Suboxone SL) 8-2 Mg Film, 1 FILM SL TID, FILM 09/07/16 Gabapentin* (Gabapentin*) 600 Mg Tablet, 600 MG PO TID, #90 TAB 09/07/16 Meloxicam* (Mobic*) 15 Mg Tablet, 15 MG PO DAILY, #30 TAB 09/07/16 Citalopram Hydrobromide* (Citalopram Hydrobromide*) 40 Mg Tablet, 40 MG PO DAILY , #30 TAB 09/07/16 Hydroxyzine Hcl* (Atarax*) 25 Mg Tab, 25-50 MG PO QHS Y for ITCHING, TAB 09/07/16 Phenytoin* Sodium Extended (Dilantin*) 100 Mg Capsule, 200 MG PO BID, CAP 09/07/16 Primary Care Provider Not On Staff Doctor Pending Labs Laboratory Tests Test 09/11/16 04:34 White Blood Count 8.910^3/ul (4.8-10.8) Red Blood Count 4.4810^6/ul (4.70-6.10) Hemoglobin 13.4g/dl (14.0-18.0) Hematocrit 37.7% (42.0-52.0) Mean Corpuscular Volume 84.2fl (82.0-101.0) Mean Corpuscular Hemoglobin 29.9pg (29.0-33.0) Mean Corpuscular Hemoglobin Concent 35.5g/dl (32.0-37.0) Red Cell Distribution Width 11.1% (11.5-14.5) Platelet Count 79736^3/UL (140-415) Mean Platelet Volume 9.8fl (7.4-10.4) Neutrophils % 50.8% (39.0-77.0) Lymphocytes % 37.7% (15.0-51.0) Monocytes % 9.5% (0.0-11.0) Eosinophils % 1.3% (0.0-7.0) Basophils % 0.3% (0.0-2.0) Nucleated Red Blood Cells % 0.0/100WBC (0.0-0.0) Neutrophils # 4.510^3/ul (1.6-7.5) Lymphocytes # 3.410^3/ul (0.8-2.9) Monocytes # 0.910^3/ul (0.3-0.9) Eosinophils # 0.110^3/ul (0.0-0.5) Basophils # 0.010^3/ul (0.0-0.1) Nucleated Red Blood Cells # 0.010^3/ul (0.0-0.0) Sodium Level 141mmol/L (135-144) Potassium Level 3.8mmol/L (3.5-5.1) Chloride Level 105mmol/L (97-110) Carbon Dioxide Level 27mmol/L (21-31) Anion Gap 13 (8-16) Blood Urea Nitrogen 11mg/dl (7-20) Creatinine 0.62mg/dl (0.61-1.24) Glucose Level 111mg/dl (70-220) Calcium Level 9.3mg/dl (8.4-10.2) FAUSTO BURTON Sep 11, 2016 12:10
== END 2016-09-11 14:34 | disposition home or self-care (01) | DRG 520 ==
LOC: REC 10:46 → MS1 17:10
PROVIDERS: ADMIT Neurological Surgery; ATTEND Internal Medicine
PROC: 01NB0ZZ Release Lumbar Nerve, Open Approach (ICD-10-PCS; 2016-09-07)
PROC: 0SB20ZZ Excision of Lumbar Vertebral Disc, Open Approach (ICD-10-PCS; 2016-09-07)
PROC: 0SB40ZZ Excision of Lumbosacral Disc, Open Approach (ICD-10-PCS; principal; 2016-09-07 12:30)
DX: M51.17 Intervertebral disc disorders with radiculopathy, lumbosacral region (principal); F17.200 Nicotine dependence, unspecified, uncomplicated; M51.16 Intervertebral disc disorders with radiculopathy, lumbar region; M48.06 Spinal stenosis, lumbar region; G40.909 Epilepsy, unspecified, not intractable, without status epilepticus; Z87.898 Personal history of other specified conditions; Z79.899 Other long term (current) drug therapy
CPT/HCPCS: 72100; 80048; 85025; 86850; 86900; 86901; 87086; 88304; 97116; 97161; 97530; J0360; J0690; J1100; J1170; J1200; J2060; J2175; J2250; J2270; J2405; J2710; J3010